=== PATIENT | female | born 1995 | race Caucasian/White ===

== ENCOUNTER 2019-07-24 10:45 | Inpatient (IN) ==
[2019-07-24] MEDS ORDERED: Sodium Chloride 0.9% 1,000 ML PRIMARY IV ONE (11:15)
[2019-07-24] MEDS ORDERED: ONDANSETRON 4 MG/2 ML VIAL IVP ONE (11:15)
[2019-07-24] MEDS ORDERED: MORPHINE SULFATE 4 MG/1 ML IVP ONE ×2 (11:15→13:11)
[2019-07-24] MEDS ORDERED: LORazepam 2 MG/1 ML VIAL IVP ONE (11:18)
[2019-07-24] MEDS ORDERED: Sodium Chloride 0.9% 1,000 ML, Magnesium Sulfate 2gm (Premix) 50 ML with Multivitamin I... IV ONE ×5 (11:19)
[2019-07-24] MEDS ORDERED: Sodium Chloride 0.9% 1,000 ML with Multivitamin Inj 10 ML, Thiamine Inj 100 MG, Folic A... IV ONE ×5 (11:30)
[2019-07-24 11:32] LABS: BLOOD UREA NITROGEN 12 mg/dL (7-22); SERUM ALBUMIN 5.7 g/dL (3.5-4.8)
[2019-07-24 11:53] LABS: RED BLOOD COUNT 4.01 10^6/uL (4.20-5.40)
[2019-07-24 11:54] LABS: BAND NEUTROPHILS % 4 % (0-10); BASOPHILS % (MANUAL) 0 % (0-1); EOSINOPHILS % (MANUAL) 0 % (0-8); Hematocrit [HCT] 47.3 % (37.0-47.0); Hemoglobin [HGB] 15.2 g/dL (12.0-16.0); MEAN CORPUSCULAR HGB CONC 32.2 g/dL (33-37); MEAN CORPUSCULAR VOLUME 118 FL (81-99); MONOCYTES % (MANUAL) 2 % (0-12); NEUTROPHILS % (MANUAL) 76 % (50-80); PLATELET MORPHOLOGY COMMENT NORMAL MORPHOLOGY (NORM); RBC MORPHOLOGY COMMENT NORMAL MORPHOLOGY (NORM); WBC MORPHOLOGY COMMENT NORMAL MORPHOLOGY (NORM)
[2019-07-24 13:22] LABS: BILIRUBIN,URINE SMALL (NEG); CLARITY,URINE CLEAR (CLEAR); COLOR,URINE YELLOW (Y); GLUCOSE, URINE (UA) NEGATIVE (NEG); OCCULT BLOOD,URINE SMALL (NEG); PH,URINE 5.5 (5.0-8.5); PROTEIN,URINE 100 mg/dl (NEG); UROBILINOGEN,URINE 0.2 EU/dL (0.2)
[2019-07-24 13:25] LABS: RBC,URINE 0 /hpf; SQUAMOUS EPITHELIAL CELL,UR MODERATE; URINE SAMPLE TYPE CLEAN CATCH URINE; WBC,URINE 0
[2019-07-24 13:26] LABS: AMPHETAMINE SCREEN NEGATIVE (NEG); CANNABINOID SCREEN,URINE NEGATIVE (NEG); COCAINE SCREEN NEGATIVE (NEG); METHADONE URINE SCREEN NEGATIVE (NEG); METHAMPHETAMINES SCREEN,URINE NEGATIVE (NEG); OPIATE SCREEN,URINE POSITIVE (NEG)
[2019-07-24 14:29] LABS: VENOUS PH 7.23 (7.32-7.42)
[2019-07-24] MEDS ORDERED: Sodium Chloride 0.9% 1,000 ML with Multivitamin Inj 10 ML, Thiamine Inj 100 MG, Folic A... IV SCH ×5 (17:00)
[2019-07-24] MEDS ORDERED: ONDANSETRON 4 MG/2 ML VIAL IV PRN (17:46)
[2019-07-24] MEDS ORDERED: LIDOCAINE W/ SODIUM BICARB 0.5 ML SYR SUBD PRN (17:46)
[2019-07-24] MEDS ORDERED: SODIUM POLYSTYRENE SULFONATE 15 GM/60 ML PO ONE (17:46)
[2019-07-24] MEDS ORDERED: MAG HYDROX/AL HYDROX/SIMETH 30 ML SUSP PO PRN (17:46)
[2019-07-24] MEDS ORDERED: Dexmedetomidine/NS 400 MCG/100 ML INFUS..BTL IV SCH (17:46)
[2019-07-24] MEDS ORDERED: Sodium Chloride 0.9% 1,000 ML PRIMARY IV SCH (17:46)
[2019-07-24] MEDS ORDERED: HYDROmorphone 2 MG/1 ML IVP PRN (17:46)
[2019-07-24] MEDS ORDERED: MAGNESIUM 400 MG/5 ML - 30 ML (MILK OF MAGNESIA) PO PRN (17:46)
[2019-07-24] MEDS: Sodium Chloride 0.9% 1,000 ML PRIMARY IV SCH (18:50)
[2019-07-24] MEDS ORDERED: NICOTINE 21 MG /DAY PATCH TRANSDERM SCH (19:15)
[2019-07-24] MEDS: LORazepam Inj(ETOH withdrawal) 2 MG/ML VIAL IVP PRN ×2 (19:30→22:00)
[2019-07-24] MEDS ORDERED: LIDOCAINE HCL 2 % 10 ML JELLY URO-JECT TOPICAL PRN (20:11)
[2019-07-24 20:29] LABS: BLOOD UREA NITROGEN 14 mg/dL (7-22); SERUM ALBUMIN 3.7 g/dL (3.5-4.8)
[2019-07-24] MEDS ORDERED: Piperacillin/Tazobactam Inj 4.5 GM in Sodium Chloride 0.9% 100 ML IV SCH (20:30)
[2019-07-24 21:05] LABS: AMPHETAMINE SCREEN NEGATIVE (NEG); CANNABINOID SCREEN,URINE NEGATIVE (NEG); COCAINE SCREEN NEGATIVE (NEG); METHADONE URINE SCREEN NEGATIVE (NEG); METHAMPHETAMINES SCREEN,URINE NEGATIVE (NEG); OPIATE SCREEN,URINE POSITIVE (NEG); URINE SAMPLE TYPE VOIDED SPECIMEN; URINE SPECIFIC GRAVITY - MAN 1.035
[2019-07-24 21:57] VITALS: BP 135/91; RESP 18; TEMP 99.1
[2019-07-24 22:21] VITALS: O2SAT 95
[2019-07-24] MEDS ORDERED: Magnesium Sulfate 2gm (Premix) 2 GM/50 ML BAG IV ONE (22:22)
[2019-07-25] MEDS ORDERED: PANTOPRAZOLE IV 40 MG VIAL IVP SCH (09:00)
[2019-08-03 15:24] LABS: MAYO ANAEROBIC ISO ID FIN 1600
== END 2019-07-24 22:10 | disposition short-term general hospital (02) | DRG 368 ==
LOC: ER 10:45 → ICU 17:28
PROVIDERS: ADMIT Family Medicine; ATTEND Family Medicine